=== PATIENT | female | born 1950 | race Caucasian/White ===

== ENCOUNTER 2022-07-08 13:28 | Emergency (ER) | payer OTHER ==
--- OUTSIDE RECORDS SUMMARY | 2022-07-08 13:33 | XMS REPORT | Continuity of Care Document ---
:1950 Author Organization [facility] t Address [address] [place] [address] Care Team Providers Name Role Phone PCP, PATIENT DOES NOT HAVE A Primary Care Physician Unavaila GOPI Loredo Attending Clinician Unavailable Doctor Unassigned, [place] Attending Clinician Unavailable Gopi Conde MD Attending Clinician Only, Adc Test Attending Clinician Unavailable Pob, Adc Lab Main Attending Clinician Unavailable Jorge Son DO Attending Clinician DAMARI HADLEY Attending Clinician Unavailable Elizabeth Pardo Attending Clinician ELIZABETH BAER Attending Clinician Unavailable Damari Hadley PA-C Attending Clinician GOPI CONDE Admitting Clinician Unavailable Gopi Conde MD Admitting Clinician DAMARI HADLEY Admitting Clinician Unavailable Payers Payer Name Policy Type Policy Number Effective Date Expiration Date S ource MEDICARE PART A \T\ [id number] 2017 B 00:00:00 CONTINENTAL [id number] 2020 BENEFITS 00:00:00 [employer] HMO GENERIC [id number] 2020 00:00:00 [employer] MEDICARE ADV [id number] 2019 00:00:00 Problems Condition Condition Condition Status Onset Resolution Last Treating Co mments Source Name Details Category Date Date Treatment Clinician Date No known No known Disease Unive rs active active ity of problems problems [facility] Allergies, Adverse Reactions, Alerts Allergy Allergy Status Severity Reaction(s) Onset Inactive Treating Comm ents Source Name Type Date Date Clinician Propofol Propensi Active Other - See Ponv/ U nivers ty to comments 03-06 VERTIGO ity of adverse 00:00: [place] reaction 00 Medical s [place] PROPOFOL DRUG Active High Other-Cmnt Univ ers INGREDI 03-06 ity of 00:00: [place] [id number] Medical Branch NO KNOWN Drug Active Univers ALLERGIE Class ity of S [facility] Social History Social Habit Start Date Stop Date Quantity Comments Source Exposure to Not sure [facility] SARS-CoV-2 [facility] (event) [place] Alcohol intake 2021-03-08 2021-03-08 Current drinker of Un iversity of 00:00:00 00:00:00 alcohol (finding) [facility] Tobacco use and 2021-03-08 2021-03-08 Never used Universit y of exposure 00:00:00 00:00:00 [facility] Alcohol Comment 2019-12-30 2019-12-30 ocassionally Univers ity of 00:00:00 00:00:00 [facility] Sex Ass[birth year] At [birth year] Universit y of 00:00:00 00:00:00 [facility] Smoking Status Start Date Stop Date Source Never smoker [facility] Medications Ordered Filled Start Stop Current Ordering Indication Dosage Frequency Signature Comments Components Source Medication Medication Date Date Medication? Clinician (SIG) Name Name neomycin-po Yes PRN, Tariq conway lymyxin-dex 03-07 Starting ity of amethasone 19:43: Wed [place] (MAXITROL) 03/07/21 at Med ical 3.5 1443, Branch mg/g-10,000 Until unit/g-0.1 Discontinu % ed, ophthalmic Routine, ointment Intra-op Hyaluronida Yes PRN, Tariq conway se, Human 03-07 Starting ity of Recomb. 19:43: Wed [place] (HYLENEX) 03/07/21 at Medi herminio injection 1443, Branch Until Discontinu ed, Routine, Intra-op EPINEPHrine Yes PRN, Tariq conway 1:1,000 (1 03-07 Starting ity o f mg/mL) 19:43: Fri (ADRENALIN) 00 03/07/21 at In dical injection 1443, Branch Until Discontinu ed, Routine, Intra-op eye block Yes PRN, Univers syringe 11 03-07 Starting ity o f mL 19:43: Fri03/07/21 at [facility] 1443, Branch Until Discontinu ed, Intra-op ceFAZolin Yes PRN, Univers (ANCEF) 03-07 Starting ity of injection 19:42: Fri 00 03/07/21 at [facility] 1442, Branch Until Discontinu ed, RAVEN, Intra-op carbachoL Yes PRN, Univers (MIOSTAT) 03-07 Starting ity of 0.01 % 19:42: Fri intraocular 00 03/07/21 at In dical injection 1442, Branch Until Discontinu ed, Routine, Intra-op balanced Yes PRN, Univers salt irrig 03-07 Starting ity o f soln comb1 19:42: Fri (BSS PLUS) 03/07/21 at [facility] ica ophthalmic 1442, Branch solution Until 500 mL bag Discontinu ed, Routine, Intra-op mydriatic 2020- No .5mL 0.5 mL, [facility] ers #5 03-07 Left Eye, ity of ophthalmic 17:30: 17:27 ONCE, 1 Wild [place] solution 00 :00 dose, Fri Medica l 0.5 mL 03/07/21 at [place] syringe 1230, Routine, DSU Pre-op lactated 2020- No 1000mL at 42 Unive rs ringers IV 03-07 mL/hr, ity of infusion 17:30: : 1,000 mL, Wild as 1,000 mL 00 :00 IV Medical Infusion, [place] ONCE, 1 dose, 03/07/21 at 1230, Routine, DSU Pre-op carbachoL Yes PRN, Univers (MIOSTAT) 02-21 Starting ity of 0.01 % 15:51: Fri [place] intraocular 00 02/21/21 at In dical injection 1051, Branch Until Discontinu ed, Routine, Intra-op DUOVISC Yes PRN, Univers (DUOVISC 02-21 Starting ity of VISCO 15:51: Wed [place] ELASTIC) 3 00 02/21/21 at [facility] ical %-4 %(0.5 1051, Branch mL) 1 % Until (0.55 mL) Discontinu intraocular ed, injection Routine, Intra-op Hyaluronida Yes PRN, Univer s se, Human 02-21 Starting ity of Recomb. 15:51: Wed [place] (HYLENEX) 00 02/21/21 at [facility] herminio injection 1051, Branch Until Discontinu ed, Routine, Intra-op carbachoL 2020- No PRN, Univers (MIOSTAT) 02-21 Starting ity o f 0.01 % 15:51: 18:25 Wed [place] intraocular 00 :59 02/21/21 at In dical injection 1051, Branch Until 02/21/21 at 1325, Routine, Intra-op DUOVISC 2020- No PRN, Univers (DUOVISC 02-21 Starting ity of VISCO 15:51: 18:25 Wed [place] ELASTIC) 3 00 :59 02/21/21 at [facility] ical %-4 %(0.5 1051, Branch mL) 1 % Until Wed (0.55 mL) 02/21/21 at intraocular 1325, injection Routine, Intra-op Hyaluronida 2020- No PRN, Unive se, Human 02-21 Starting ity o f Recomb. 15:51: 18:25 Wed [place] (HYLENEX) 00 :59 02/21/21 at [facility] herminio injection 1051, Branch Until 02/21/21 at 1325, Routine, Intra-op neomycin-po Yes PRN, [facility] s lymyxin-dex 02-21 Starting ity of amethasone 15:50: Wed [place] (MAXITROL) 00 02/21/21 at [facility] ical 3.5 1050, Branch mg/g-10,000 Until unit/g-0.1 Discontinu % ed, ophthalmic Routine, ointment Intra-op sodium Yes PRN, Univers chloride 02-21 Starting ity of (NS) 15:50: Wed [place] injection 00 02/21/21 at [facility] herminio 1050, Branch Until Discontinu ed, Routine, Intra-op neomycin-po 2020- No PRN, Unive rs lymyxin-dex 02-21 Starting ity of amethasone 15:50: 18:25 Fri [place] (MAXITROL) 00 :59 02/21/21 at [facility] ical 3.5 1050, Branch mg/g-10,000 Until Fri unit/g-0.1 02/21/21 at % 1325, ophthalmic Routine, ointment Intra-op sodium 2020- No PRN, Univers chloride 02-21 Starting ity of (NS) 15:50: 18:25 Fri [place] injection 00 :59 02/21/21 at [facility] herminio 1050, Branch Until 02/21/21 at 1325, Routine, Intra-op water for Yes PRN, Univers irrigation 02-21 Starting ity o f irrigation 15:49: Wed [place] solution 00 02/21/21 at Medic al 1049, Branch Until Discontinu ed, Routine, Intra-op water for 2020- No PRN, Univers irrigation 02-21 Starting ity of irrigation 15:49: 18:25 Fri [place] solution 00 :59 02/21/21 at Medic al 1049, Branch Until 02/21/21 at 1325, Routine, Intra-op eye block Yes PRN, Univers syringe 02-21 Starting ity o f mL 15:36: Wed [place] 00 02/21/21 at Medical 1036, Branch Until Discontinu ed, Intra-op eye block 2020- No PRN, Univers syringe 11 02-21 Starting ity of mL 15:36: 18:25 [facility] [place] 00 :59 02/21/21 at Medical 1036, Branch Until 02/21/21 at 1325, Intra-op mydriatic 2020- No .5mL 0.5 mL, Univ ers #5 02-21 Right Eye, ity of ophthalmic 13:30: 13:36 ONCE, 1 [place] solution 00 :00 dose, Fri Medica l 0.5 mL 02/21/21 at Branch syringe 0830, Routine, DSU Pre-op lactated 2020- No 1000mL at 42 Unive rs ringers IV 4-14 04-14 mL/hr, ity of infusion 13:30: 13:36 1,000 mL, Wild as 1,000 mL 00 :00 IV Medical Infusion, Branch ONCE, 1 dose, 02/21/21 at 0830, Routine, DSU Pre-op mydriatic 2020- No .5mL 0.5 mL, Univ ers #5 02-21 Right Eye, ity of ophthalmic 13:30: 13:36 ONCE, 1 [place] solution 00 :00 dose, Fri Medica l 0.5 mL 02/21/21 at Branch syringe 0830, Routine, DSU Pre-op lactated 2020- No 1000mL at 42 Unive rs ringers IV 02-21-14 mL/hr, ity of infusion 13:30: 13:36 1,000 mL, Wild [place] 1,000 mL 00 :00 IV Medical Infusion, Branch ONCE, 1 dose, 02/21/21 at 0830, Routine, DSU Pre-op No known No [facility] No [facility] No [facility] No Univers [facility] No Univers [facility] No Univers medications [facility] No Univers medications [facility] No Univers medications [facility] No Univers [facility] No known No Univers medications [facility] No known No Univers medications [facility] No known No Univers medications [facility] Vital Signs Vital Name Observation Time Observation Value Comments Source Systolic blood 2021-03-07 20:05:00 124 mm[Hg] [facility] pressure [facility] Diastolic blood 2021-03-07 20:05:00 66 mm[Hg] [facility] Body temperature 2021-03-07 20:05:00 36.72 Bertha [facility] Heart rate 2021-03-07 20:00:00 70 /min Universi [facility] [place] [facility] Respiratory rate 2021-03-07 20:00:00 17 /min Univ ersity of [place] [facility] Oxygen saturation in 2021-03-07 20:00:00 98 /min University of Arterial blood by [place] Medi herminio Pulse oximetry Branch Body height 2021-03-06 14:15:00 165.1 cm Universi ty of [place] [facility] Body weight 2021-03-06 14:15:00 72.576 kg Universi ty of [place] [facility] BMI 2021-03-06 14:15:00 26.63 kg/m2 Universi ty of [place] [facility] Systolic blood 2021-02-21 16:10:00 128 mm[Hg] Univer sity of pressure [place] [facility] Diastolic blood 2021-02-21 16:10:00 69 mm[Hg] Unive rsity of pressure [place] [facility] Heart rate 2021-02-21 16:10:00 66 /min Universi ty of [place] [facility] Respiratory rate 2021-02-21 16:10:00 21 /min Univ ersity of [place] [facility] Oxygen saturation in 2021-02-21 16:10:00 93 /min University of Arterial blood by [facility] Pulse oximetry Branch Body temperature 2021-02-21 13:31:00 36.56 Bertha Univ ersity of [place] [facility] Body height 2021-02-20 14:15:00 165.1 cm Universi ty of [place] [facility] Body weight 2021-02-20 14:15:00 72.576 kg Universi ty of [place] [facility] BMI 2021-02-20 14:15:00 26.63 kg/m2 Universi ty of [place] [facility] Systolic blood 2021-02-21 16:10:00 128 mm[Hg] Univer sity of pressure [place] [facility] Diastolic blood 2021-02-21 16:10:00 69 mm[Hg] Unive rsity of pressure [place] [facility] Heart rate 2021-02-21 16:10:00 66 /min Universi ty of [place] [facility] Respiratory rate 2021-02-21 16:10:00 21 /min Univ ersity of [place] [facility] Oxygen saturation in 2021-02-21 16:10:00 93 /min University of Arterial blood by [place] Medi herminio Pulse oximetry Branch Body temperature 2021-02-21 13:31:00 36.56 Bertha Univ ersity of [place] [facility] Body height 2021-02-20 14:15:00 165.1 cm Universi ty of [place] [facility] Body weight 2021-02-20 14:15:00 72.576 kg Universi ty of [place] [facility] BMI 2021-02-20 14:15:00 26.63 kg/m2 Universi ty of [place] [facility] Systolic blood 2020 00:55:00 138 mm[Hg] Univer sity of pressure [facility] Diastolic blood 2020 00:55:00 88 mm[Hg] Unive rsity of pressure [facility] Branch Heart rate 2020 00:55:00 106 /min Universi ty of [facility] Body temperature 2020 00:55:00 37.39 Bertha Univ ersity of [facility] Respiratory rate 2020 00:55:00 18 /min Univ ersity of [facility] Body height 2020 00:55:00 165.1 cm Universi ty of [place] Medical [place] Body weight 2020 00:55:00 71.668 kg Universi ty of [place] [facility] BMI 2020 00:55:00 26.29 kg/m2 Universi ty of [facility] Oxygen saturation in 2020 00:55:00 97 /min University of Arterial blood by [facility] Pulse oximetry Branch Systolic blood 2019-12-30 16:54:00 136 mm[Hg] Univer sity of pressure [facility] Diastolic blood 2019-12-30 16:54:00 82 mm[Hg] Unive rsity of pressure [facility] Heart rate 2019-12-30 16:54:00 68 /min Universi ty of [facility] Body temperature 2019-12-30 16:54:00 36.33 Bertha Univ ersity of [facility] Respiratory rate 2019-12-30 16:54:00 18 /min Univ ersity of [facility] Body height 2019-12-30 16:54:00 165.1 cm Universi ty of [place] [facility] Body weight 2019-12-30 16:54:00 71.668 kg Universi ty of [place] [facility] BMI 2019-12-30 16:54:00 26.29 kg/m2 Universi ty of [facility] Systolic blood 2019-12-30 16:54:00 136 mm[Hg] Univer sity of pressure [facility] Diastolic blood 2019-12-30 16:54:00 82 mm[Hg] Unive rsity of pressure [facility] Heart rate 2019-12-30 16:54:00 68 /min [facility] Body temperature 2019-12-30 16:54:00 36.33 Bertha [facility] Res[facility] rate 2019-12-30 16:54:00 18 /min [facility] Body height 2019-12-30 16:54:00 165.1 cm [facility] Body weight 2019-12-30 16:54:00 71.668 kg [facility] BMI 2019-12-30 16:54:00 26.29 kg/m2 [facility] Procedures Procedure Date / Time Performing Source Performed Clinician CONSENT/REFUSAL FOR DIAGNOSIS 2021-03-08 Doctor Unassigned, [facility] AND TREATMENT 19:57:36 [place] [facility] CONSENT/REFUSAL FOR DIAGNOSIS 2021-03-06 Doctor Unassigned, [facility] AND TREATMENT 14:47:54 [place] [facility] ASSIGNMENT OF BENEFITS 2021-03-06 Doctor Unassigned, [facility] 14:47:39 [place] [facility] CONSENT/REFUSAL FOR DIAGNOSIS 2021-03-06 Doctor Unassigned, [facility] AND TREATMENT 14:47:23 [place] [facility] ASSIGNMENT OF BENEFITS 2021-03-06 Doctor Unassigned, [facility] 14:47:10 [place] [facility] PHACOEMULSIFICATION OF 2021-02-21 Gopi Conde [facility] CATARACT WITH INTRAOCULAR 15:21:00 [facility] LENS IMPLANT CONSENT/REFUSAL FOR DIAGNOSIS 2021-02-20 Doctor Unassigned, [facility] AND TREATMENT 16:33:36 [place] [facility] ASSIGNMENT OF BENEFITS 2021-02-20 Doctor Unassigned, [facility] 16:33:18 [place] [facility] CONSENT/REFUSAL FOR DIAGNOSIS 2021-02-12 Doctor Unassigned, [facility] AND TREATMENT 15:31:00 [place] [facility] CONSENT/REFUSAL FOR DIAGNOSIS 2021-02-12 Doctor Unassigned, [facility] AND TREATMENT 15:31:00 [place] [facility] ASSIGNMENT OF BENEFITS 2021-02-12 Doctor Unassigned, [facility] 15:30:44 [place] [facility] ASSIGNMENT OF BENEFITS 2021-02-12 Doctor Unassigned, [facility] 15:30:44 [place] [facility] NOTICE OF PRIVACY PRACTICES 2021-02-12 Doctor Unassigned, [facility] 15:30:25 [place] [facility] NOTICE OF PRIVACY PRACTICES 2021-02-12 Doctor Unassigned, [facility] 15:30:25 [place] [facility] CONSENT/REFUSAL FOR DIAGNOSIS 2021-02-12 Doctor Unassigned, [facility] AND TREATMENT 15:30:09 [place] [facility] CONSENT/REFUSAL FOR DIAGNOSIS 2021-02-12 Doctor Unassigned, [facility] AND TREATMENT 15:30:09 [place] [facility] ASSIGNMENT OF BENEFITS 2021-02-12 Doctor Unassigned, [facility] 15:29:44 [place] [facility] ASSIGNMENT OF BENEFITS 2021-02-12 Doctor Unassigned, [facility] 15:29:44 [place] [facility] PHYSICIAN ORDERS 2021-02-12 Doctor Unassva [facility], [facility] 05:01:00 [place] [facility] PHYSICIAN ORDERS 2021-02-12 Doctor Unassigned, [facility] 05:01:00 [place] [facility] POCT GRP A STREP (MOLECULAR) 2020 Elizabeth Baer [facility] 01:07:00 Medical Branch BI SCREENING MAMMOGRAM 2019-12-30 Damari Hadley [facility] BILATERAL 21:08:00 Medical Branch Encounters Start End Encounter Admission Attending Care Care Encounter Source Date/Time Date/Time Type Type Clinicians Facility Department ID 2021-09-09 Emergency [facility] [id number] Univers 16:11:34 [facility] 2021-09-09 Outpatient J[address] CONDE [facility] OPH [id number] Univers 14:27:36 GOPI [facility] 2021-09-09 [id number] Univers 10:00:08 GOPI [facility] 2021-03-08 2021-03-08 Orders Doctor DOWD [id number] Univers 00:00:00 00:00:00 Only INNA Topete [id number] ity [facility] 4.2.7.2.686 [place] [id number] [facility] 009 Branch 2021-03-07 2021-03-07 Hospital [facility] [id number] Univers 12:19:00 15:21:00 Encounter Gopi Hays [place] [id number] [id number] [id number] [facility] 071 Branch 2021-03-06 2021-03-06 Laboratory Only, Adc Test [facility] 1.2.840. [id number] Univers 09:49:15 10:04:15 Only Gopi Conde [place] 350.1.13.1 0 [id number] [place] [id number] [facility] 353 Branch 2021-03-06 2021-03-06 Outpatient R [facility] [id number] Univers 10:00:00 10:00:00 [id number] ity of [facility] 2021-03-06 2021-03-06 Outpatient R [facility] [id number] Univers 10:00:00 10:00:00 GOPI ity [facility] 2021-02-21 2021-02-21 [facility] [id number] Univers 08:25:00 11:20:00 Encounter Gopi Hays [place] [id number] [place].2.[place] [id number] [facility] 071 Branch 2021-02-21 2021-02-21 Surgery [facility] [id number] Univers 10:35:00 11:16:00 Gopi Lis [place] [id number] [place].2.[place] [id number] [facility] 020 Branch 2021-02-20 2021-02-20 Laboratory Only, Adc Test [facility] 1.2.840. [id number] Univers 11:32:38 11:47:38 Only Gopi Conde [place] 350.1.13.1 0 [place] 4[place]2.[place].2.686 [place] [id number] [facility] 353 Branch 2021-02-20 2021-02-20 Outpatient R [facility] [id number] Univers 11:30:00 11:30:00 [id number] [facility] 2021-02-20 2021-02-20 [facility] [id number] Univers 11:30:00 11:30:00 GOPI [facility] 2021-02-20 2021-02-20 Orders Doctor NOEMÍ [id number] Univers 00:00:00 00:00:00 Only Unassigned, INNA [id number] ity of [facility] 4.2.7.2.686 [place] [id number] [facility] 009 Branch 2021-02-12 2021-02-12 [employer] Renzo, Adc Lab Main [facility] [id number] Univers 10:32:47 10:47:47 Visit Gopi Conde 350.1.13.1 0 [facility] 4.2.7.2.[address] [facility] [id number] In dical nal 353 [facility] 2021-02-12 2021-02-12 Outpatient R [facility] [id number] Univers 10:45:00 10:45:00 [id number] [facility] 2021-02-12 2021-02-12 Outpatient R BRYANT [facility] [id number] Univers 10:45:00 10:45:00 GOPI [facility] 2021-01-15 2021-01-15 [facility] [id number] Univers 00:00:00 00:00:00 Outreach Jorge MEJIA 350.1.13.10 i ty of [facility] 4.2.7.2.686 [place] [id number] In dical 388 Branch 2021-01-01 2021-01-01 [facility] [id number] Univers 10:00:00 10:00:00 DAMARI [facility] 2020-12-14 2020-12-14 [facility] [id number] Univers 18:50:21 19:10:21 Care Elizabeth Funez 350.1.13.10 ity of [place] 4.2.7.2.686 Wild as Professio [id number] [facility] 044 [place] [address] 2020-12-14 2020-12-14 Outpatient [facility] [id number] Univers 19:00:00 19:00:00 [id number] ity [facility] 2020-12-14 2020-12-14 Out[facility] [id number] Univers 19:00:00 19:00:00 ELIZABETH dominguez o f [facility] 2019-12-30 2019-12-30 [facility] [id number] Univers 14:19:55 23:59:00 [facility] 2019-12-30 2019-12-30 [facility] [id number] Univers 14:19:00 23:59:00 Encounter Damari [place]par[place] 350.1.13.10 [place] 4[place].2.[place] [id number] [address] 2019-12-30 2019-12-30 [facility] [id number] 14:19:00 23:59:00 Encounter Damari Christensen 350.1.13.10 [place] 4.2.7.2.686 [place] [id number] [facility] 2019-12-30 2019-12-30 [facility] [id number] Univers 10:30:21 11:20:41 Visit Damari Christensen 350.1.13.10 i [place] 4.2.7.2.[place] Profess[place] [id number] In dical nal 134 [facility] 2019-12-30 2019-12-30 Office [facility] [id number] 10:30:21 11:20:41 Visit Damari Christensen 350.1.13.10 [place] 4.2.7.2.686 [place] [phone] nal 134 Building Results Test Description Test Time Test Comments Results Result Comments Source POCT GRP A STREP (MOLECULAR) 2020 01:17:00 Test Item Value Reference Range Interpretation Comme nts POCT GP A STREP (test code = Negative Negative - Negative 95930-0) MADDY (test code = MADDY) accurate development and interpretation of all internal controls Lab Interpretation (test code = Normal 93733-2) [facility] [id number] 21:33:48Examination:BI SCREENING MAMMOGRAM BILATERAL History:Patient is 69 year old and is seen for: ?Routine mammogram screening. Computer-aided detection (CAD) utilized. Comparisons : None available Findings:The breasts have scattered areas of fibroglandular density. RightThere is a focal asymmetry seen in the upper outer quadrant of the right breast in the middle depth. BilateralThere are skin and round calcifications in a diffuse distribution seen in both breasts. Impression:No signs of malignancy. Recommendation:Annual mammographic follow-up - BilateralAnnual mammographic follow-up - Right BI-RADS Category: Both 2 - [facility]
[2022-07-08] MEDS ORDERED: NA CHLORIDE 0.9% 1,000 ML ONE (14:00)
[2022-07-08] MEDS ORDERED: FAMOTIDINE 20 MG/2 ML VIAL IV ONE (14:00)
[2022-07-08 14:15] LABS: Absolute Lymphocytes (CBC) 1.3 K/uL (0.7-4.9); Hematocrit 42.8 % (36.0-45.0); Lymphocytes % 10.6 % (15.3-44.8); MCV 90.8 fL (80-100); MPV 7.4 fL (7.6-11.3); RBC Red Blood Cell Count 4.71 M/uL (3.86-4.86)
[2022-07-08 14:34] LABS: Albumin 3.5 g/dL (3.4-5.0); Bilirubin Total 0.7 mg/dL (0.2-1.0); Potassium 3.7 mmol/L (3.5-5.1); Protein, Total 7.8 g/dL (6.4-8.2)
--- NOTE | 2022-07-08 15:13 | ER ---
Nurse's Notes [facility] Name: Janae Fields Age: 71 yrs Sex: Female : 1950 Arrival Date: 07/08/2022 Time: 13:31 Bed 12 Private MD: Fady Desouza V Diagnosis: Streptococcal pharyngitis;Vaginitis, vulvitis and vulvovaginitis in diseases classified elsewhere Presentation: 07/08 13:34 Chief complaint: Patient states: last 4-5days has had thick yellow vaginal discharge, iw thought she had a UTI was seen at [place] this morning and they checked her urine and was told it was not a UTI, no medications given , started feeling worse after she left , started running fever and throat got scratchy and sore. Coronavirus screen: At this time, the client does not indicate any symptoms associated with coronavirus-19. Ebola Screen: Patient negative for fever greater than or equal to 101.5 degrees Fahrenheit, and additional compatible Ebola Virus Disease symptoms Patient denies exposure to infectious person. Patient denies travel to an Ebola-affected area in the 21 days before illness onset. No symptoms or risks identified at this time. Initial Sepsis Screen: Does the patient meet any 2 criteria? No. Patient's initial sepsis screen is negative. Does the patient have a suspected source of infection? No. Patient's initial sepsis screen is negative. Risk Assessment: Do you want to hurt yourself or someone else? Patient reports no desire to harm self or others. Onset of symptoms was July 04, 2022. 13:34 Method Of Arrival: Ambulatory iw 13:34 Acuity: MINESH 3 iw Triage Assessment: 14:00 General: Appears in no apparent distress. comfortable, Behavior is calm, cooperative. kb3 15:56 General: Appears. kb3 Historical: - Allergies: 13:38 No Known Allergies; iw - Home Meds: 13:38 None [Active]; iw - PMHx: 13:38 None; iw - PSHx: 13:38 None; iw - Immunization history:: Client reports having NOT received the Covid vaccine. - Social history:: Smoking status: Patient denies any tobacco usage or history of. Screenin:00 Abuse screen: Denies threats or abuse. Denies injuries from another. Nutritional kb3 screening: No deficits noted. Tuberculosis screening: No symptoms or risk factors identified. Fall Risk None identified. Assessment: 14:00 Reassessment: No changes from previously documented assessment. kb3 14:00 Pain: Denies pain. Respiratory: No deficits noted. Airway is patent Respiratory effort kb3 is even, unlabored, Breath sounds are clear. EENT: Throat is clear with gag reflex present. 14:19 General: Savanna CRANE OPERATOR CAB at bedside to obtain vaginal swab for culture. kb3 Vital Signs: 13:34 BP 147 / 71; Pulse 104; Resp 18; Temp 100.8(O); Pulse Ox 97% on R/A; Weight 68.04 kg; iw Height 5 ft. 5 in. (165.10 cm); 14:53 BP 140 / 73; Pulse 87; Resp 18; Temp 100.4; Pulse Ox 99% ; kb3 15:45 BP 128 / 73; Pulse 88; Resp 18; Pulse Ox 100% ; Pain 2/10; kb3 13:34 Body Mass Index 24.96 (68.04 kg, 165.10 cm) iw ED Course: 13:31 Patient arrived in ED. as 13:32 Fady Desouza MD is Private Physician. as 13:37 Savanna Tong FNP-C is [facility]. snw 13:37 Jesse Mccoy MD is Attending Physician. snw 13:37 Triage completed. iw 13:38 Arm band placed on. iw 13:39 Shea Wood, RN is Primary Nurse. kb3 14:00 Patient has correct armband on for positive identification. kb3 14:00 Inserted saline lock: 20 gauge in right antecubital area, using aseptic technique. kb3 Blood collected. 14:07 Flu Sent. kb3 14:07 SARS-COV-2 RT PCR (Document "Date of Onset" if Symptomatic) Sent. kb3 14:07 Strep Sent. kb3 14:07 CBC with Diff Sent. kb3 14:07 CMP Sent. kb3 14:07 Lipase Sent. kb3 15:12 Fady Desouza MD is Referral Physician. snw 15:45 No provider procedures requiring assistance completed. IV discontinued, intact, kb3 bleeding controlled, No redness/swelling at site. Administered Medications: 14:04 Drug: NS 0.9% 1000 ml Route: IV; Rate: 125 ml/hr; Site: right antecubital; kb3 15:45 Follow up: Response: No adverse reaction; IV Status: Completed infusion; IV Intake: kb3 500ml 14:04 Drug: Pepcid (famotidine) 20 mg Route: IVP; Site: right antecubital; kb3 15:00 Follow up: Response: No adverse reaction kb3 15:15 Drug: Aspirin 650 mg Route: PO; kb3 15:55 Follow up: Response: No adverse reaction kb3 15:15 Drug: Rocephin (cefTRIAXone) 1 grams Route: IV; Rate: calculated rate; Site: right kb3 antecubital; 15:54 Follow up: Response: No adverse reaction; IV Status: Completed infusion; IV Intake: 14stkg5 15:15 Drug: Zithromax (azithromycin) 500 mg Route: PO; kb3 15:54 Follow up: Response: No adverse reaction kb3 Medication: 14:00 VIS not applicable for this client. kb3 Intake: 15:45 IV: 500ml; Total: 500ml. kb3 15:54 IV: 50ml; Total: 550ml. kb3 Outcome: 15:13 Discharge ordered by . kenyon 15:57 Discharged to home ambulatory. kb3 15:57 Condition: stable 15:57 Discharge instructions given to patient, Instructed on discharge instructions, follow up and referral plans. medication usage, Demonstrated understanding of instructions, follow-up care, medications, Prescriptions given X 1. 15:57 Patient left the ED. kb3 Signatures: Savanna Tong, HANNAH-C LACE WINDER-CsnBernarda Lomas as Kanika Steinberg RN RN iw Shea Wood RN RN kb3 Corrections: (The following items were deleted from the chart) 13:38 13:34 Pulse 104bpm; Resp 18bpm; Pulse Ox 97% RA; 68.04 kg; Height 5 ft. 5 in.; BMI: iw 24.9; iw
--- NOTE | 2022-07-08 15:14 | EDPHYS ---
Physician Documentation [facility] Name: Janae Fields Age: 71 yrs Sex: Female : 1950 Arrival Date: 07/08/2022 Time: 13:31 Bed 12 Private MD: Fady Desouza V ED Physician Jesse Mccoy HPI: 07/08 13:53 This 71 yrs old Female presents to ER via Ambulatory with complaints of Vaginal snw Discharge, Fever, Sore Throat. 13:53 The patient presents with vaginal discharge, that is a moderate amount of a large snw amount of yellow discharge, patient has not had similar discharge in the past. Onset: The symptoms/episode began/occurred suddenly, 4 day(s) ago, and became persistent. Modifying factors: The symptoms are alleviated by nothing, the symptoms are aggravated by nothing. Associated signs and symptoms: Pertinent positives: started with fever last pm. Severity of symptoms: At their worst the symptoms were moderate. The patient has not experienced similar symptoms in the past. The patient has been recently seen by a physician: earlier today, with similar presenting complaints, urine culture, [place]. Historical: - Allergies: 13:38 No Known Allergies; iw - Home Meds: 13:38 None [Active]; iw - PMHx: 13:38 None; iw - PSHx: 13:38 None; iw - Immunization history:: Client reports having NOT received the Covid vaccine. - Social history:: Smoking status: Patient denies any tobacco usage or history of. ROS: 13:54 Eyes: Negative for injury, pain, redness, and discharge. snw 13:54 Cardiovascular: Negative for chest pain, palpitations, and edema, Respiratory: Negative for shortness of breath, cough, wheezing, and pleuritic chest pain, Abdomen/GI: Negative for abdominal pain, nausea, vomiting, diarrhea, and constipation, Back: Negative for injury and pain, MS/Extremity: Negative for injury and deformity, Skin: Negative for injury, rash, and discoloration, Neuro: Negative for headache, weakness, numbness, tingling, and seizure, Psych: Negative for depression, anxiety, suicide ideation, homicidal ideation, and hallucinations. 13:54 Constitutional: Positive for fever, malaise. 13:54 ENT: Positive for sore throat. 13:54 : Positive for vaginal discharge. Exam: 13:52 Head/Face: Normocephalic, atraumatic. Eyes: Pupils equal round and reactive to light, snw extra-ocular motions intact. Lids and lashes normal. Conjunctiva and sclera are non-icteric and not injected. Cornea within normal limits. Periorbital areas with no swelling, redness, or edema. ENT: Nares patent. No nasal discharge, no septal abnormalities noted. Tympanic membranes are normal and external auditory canals are clear. Oropharynx with no redness, swelling, or masses, exudates, or evidence of obstruction, uvula midline. Mucous membranes moist. Neck: Trachea midline, no thyromegaly or masses palpated, and no cervical lymphadenopathy. Supple, full range of motion without nuchal rigidity, or vertebral point tenderness. No Meningismus. Chest/axilla: Normal chest wall appearance and motion. Nontender with no deformity. No lesions are appreciated. Cardiovascular: Regular rate and rhythm with a normal S1 and S2. No gallops, murmurs, or rubs. Normal PMI, no JVD. No pulse deficits. Respiratory: Lungs have equal breath sounds bilaterally, clear to auscultation and percussion. No rales, rhonchi or wheezes noted. No increased work of breathing, no retractions or nasal flaring. Abdomen/GI: Soft, non-tender, with normal bowel sounds. No distension or tympany. No guarding or rebound. No evidence of tenderness throughout. Back: No spinal tenderness. No costovertebral tenderness. Full range of motion. Skin: Warm, dry with normal turgor. Normal color with no rashes, no lesions, and no evidence of cellulitis. MS/ Extremity: Pulses equal, no cyanosis. Neurovascular intact. Full, normal range of motion. Neuro: Awake and alert, GCS 15, oriented to person, place, time, and situation. Cranial nerves II-XII grossly intact. Motor strength 5/5 in all extremities. Sensory grossly intact. Cerebellar exam normal. Normal gait. Psych: Awake, alert, with orientation to person, place and time. Behavior, mood, and affect are within normal limits. 13:52 Constitutional: The patient appears alert, awake, febrile. Vital Signs: 13:34 BP 147 / 71; Pulse 104; Resp 18; Temp 100.8(O); Pulse Ox 97% on R/A; Weight 68.04 kg; iw Height 5 ft. 5 in. (165.10 cm); 14:53 BP 140 / 73; Pulse 87; Resp 18; Temp 100.4; Pulse Ox 99% ; kb3 15:45 BP 128 / 73; Pulse 88; Resp 18; Pulse Ox 100% ; Pain 2/10; kb3 13:34 Body Mass Index 24.96 (68.04 kg, 165.10 cm) iw MDM: 13:40 Patient medically screened. snw 15:13 Data reviewed: vital signs, nurses notes, lab test result(s). Data interpreted: Pulse snw oximetry: on room air is 99 %. Interpretation: normal. Counseling: I had a detailed discussion with the patient and/or guardian regarding: the historical points, exam findings, and any diagnostic results supporting the discharge/admit diagnosis, the presence of at least one elevated blood pressure reading (>120/80) during this emergency department visit, lab results, the need for outpatient follow up, to return to the emergency department if symptoms worsen or persist or if there are any questions or concerns that arise at home. Special discussion: I have referred the patient to see his PCP for further evaluation of high blood pressure. Based on the history and exam findings, there is no indication for further emergent testing or inpatient evaluation. I discussed with the patient/guardian the need to see the primary care provider for further evaluation of the symptoms. 07/08 13:42 Order name: Strep; Complete Time: 14:35 snw 07/08 14:57 Interpretation: Abnormal. snw 07/08 13:42 Order name: Flu; Complete Time: 14:46 snw 07/08 13:42 Order name: SARS-COV-2 RT PCR (Document "Date of Onset" if Symptomatic); Complete Time: snw 15:10 07/08 13:42 Order name: CBC with Diff; Complete Time: 14:23 snw 07/08 13:42 Order name: CMP; Complete Time: 14:35 snw 07/08 13:42 Order name: Lipase; Complete Time: 14:35 snw 07/08 13:42 Order name: IV Saline Lock; Complete Time: 14:07 snw 07/08 14:33 Order name: Wet Prep; Complete Time: 14:57 iw 07/08 13:42 Order name: Labs collected and sent; Complete Time: 14:07 snw Administered Medications: 14:04 Drug: NS 0.9% 1000 ml Route: IV; Rate: 125 ml/hr; Site: right antecubital; kb3 15:45 Follow up: Response: No adverse reaction; IV Status: Completed infusion; IV Intake: kb3 500ml 14:04 Drug: Pepcid (famotidine) 20 mg Route: IVP; Site: right antecubital; kb3 15:00 Follow up: Response: No adverse reaction kb3 15:15 Drug: Aspirin 650 mg Route: PO; kb3 15:55 Follow up: Response: No adverse reaction kb3 15:15 Drug: Rocephin (cefTRIAXone) 1 grams Route: IV; Rate: calculated rate; Site: right kb3 antecubital; 15:54 Follow up: Response: No adverse reaction; IV Status: Completed infusion; IV Intake: 14mlcm3 15:15 Drug: Zithromax (azithromycin) 500 mg Route: PO; kb3 15:54 Follow up: Response: No adverse reaction kb3 Disposition: 16:44 Co-signature as Attending Physician, Jesse Mccoy MD. rn Disposition Summary: 07/08/22 15:13 Discharge Ordered Location: Home snw Condition: Stable snw Diagnosis - Streptococcal pharyngitis snw - Vaginitis, vulvitis and vulvovaginitis in diseases classified elsewhere snw Followup: snw - With: Emergency Department - When: As needed - Reason: Worsening of condition Followup: snw - With: Fady Desouza MD - When: 1 week - Reason: Recheck today's complaints, Continuance of care, Re-evaluation by your physician Discharge Instructions: - Discharge Summary Sheet snw - Fever, Adult snw - Strep Throat, Adult snw - Vaginitis snw - Rehydration, Adult snw Forms: - Medication Reconciliation Form snw - Thank You Letter snw - Antibiotic Education snw - Prescription Opioid Use snw Prescriptions: - Zithromax 500 mg Oral Tablet - take 1 tablet by ORAL route once daily for 5 days; 5 tablet; Refills: 0, snw Product Selection Permitted Signatures: Dispatcher [employer] Savanna Mead FNP-Norm BANK VAULT ATTENDANT-Csnw Kanika Steinberg RN RN iw Nieto, Roman, MD MD rn Bradberry Shea, RN RN kb3 Corrections: (The following items were deleted from the chart) 14:38 13:53 Vag/Ure Culture+[id number] ordered. EDMS EDMS
[2022-07-08] MEDS ORDERED: AZITHROMYCIN 250 MG TAB ONE (15:27)
[2022-07-08] MEDS ORDERED: CEFTRIAXONE 1000 MG/VIAL ONE (15:27)
[2022-07-08] MEDS ORDERED: ASPIRIN 325 MG TAB ONE (15:27)
[2022-07-08] MEDS ORDERED: NA CHLORIDE 0.9% 50 ML ONE (15:27)
[2022-07-08 17:02] VITALS: TEMP 100.4
[2022-07-08 17:04] VITALS: BP 128/73; O2SAT 100
== END 2022-07-08 15:57 | disposition home or self-care (01) ==
LOC: ER 13:28
DX: J02.0 Streptococcal pharyngitis (principal); N77.1 Vaginitis, vulvitis and vulvovaginitis in diseases classified elsewhere; Z20.822 Contact with and (suspected) exposure to COVID-19
CPT/HCPCS: 85025; 36415; 87210; 87081; 83690; 80053; 87804 ×2; U0003; J7030; 96361; 96365; 96375; 99284